=== PATIENT | female | born 1940 | race Caucasian/White ===

== ENCOUNTER 2020-01-30 20:40 | Observation (INO) ==
[2020-01-30] MEDS ORDERED: DEXTROSE 50% 25 GM/50 ML VIAL IV PRN (22:52)
[2020-01-30] MEDS ORDERED: guaiFENesin/DM ER 600-30 MG TABLET PO PRN (22:52)
[2020-01-30] MEDS ORDERED: ALBUTEROL 2.5 MG/3 ML NEB RESP TX PRN (22:52)
[2020-01-30] MEDS ORDERED: ZALEPLON 5 MG CAPSULE PO PRN (22:52)
[2020-01-30] MEDS ORDERED: ACETAMINOPHEN 325 MG TABLET PO PRN (22:52)
[2020-01-30] MEDS ORDERED: diphenhydrAMINE CAP 25 MG CAPSULE PO PRN (22:52)
[2020-01-30] MEDS ORDERED: GLUCAGON 1 MG VIAL IM PRN (22:52)
[2020-01-30] MEDS ORDERED: NICOTINE 21 MG/24 HR PATCH TRANSDERM PRN (22:52)
[2020-01-30] MEDS ORDERED: ONDANSETRON 4 MG/2 ML VIAL IV PRN (22:52)
[2020-01-30] MEDS ORDERED: hydrALAZINE 20 MG/1 ML VIAL IV PRN (22:52)
[2020-01-30] MEDS ORDERED: DOCUSATE SODIUM 100 MG CAPSULE PO PRN (22:52)
[2020-01-30] MEDS ORDERED: NITROGLYCERIN SL 0.4 MG TABLET SL PRN (22:56)
[2020-01-30 23:10] LABS: Basophils % 0.6 % (0.0-0.8); Eosinophils # 0.1 10*3/uL (0.0-0.87); Eosinophils % 1.2 % (0.00-10.9); Immature Granulocytes % 0.3 %; Immature Granulocytes Absolute 0.02 #; Lymphocytes # 2.2 10*3/uL (1.4-4.0); Mean Corpuscular HGB Conc 32.5 GM/DL (32-36); Mean Corpuscular Volume 90.1 FL (87-102); Monocytes % 7.9 % (1.7-12.7); Platelet Count 236 T/CUMM (130-400); Red Blood Count 4.44 MC/CUMM (3.8-5.5); Red Cell Distribution Width 13.1 % (9.3-17.3); White Blood Count 6.4 T/CUMM (4-12)
[2020-01-30 23:39] LABS: Calcium 8.8 MG/DL (8.5-10.1); Osmolality,Calculated 282.5 MOS/KG (273-304)
[2020-01-30] MEDS: amLODIPine 2.5 MG TABLET PO SCH (23:40)
[2020-01-31 06:32] LABS: Calcium 8.8 MG/DL (8.5-10.1); Osmolality,Calculated 279.5 MOS/KG (273-304)
[2020-01-31] MEDS ORDERED: PANTOPRAZOLE 40 MG TABLET PO SCH (09:00)
[2020-01-31] MEDS ORDERED: traZODone 50 MG TABLET PO SCH (09:00)
[2020-01-31] MEDS ORDERED: MEMANTINE 5 MG TABLET PO SCH (09:00)
[2020-01-31] MEDS ORDERED: DONEPEZIL 10 MG TABLET PO SCH (09:00)
[2020-01-31] MEDS ORDERED: ASPIRIN EC 325 MG TABLET PO SCH (09:00)
[2020-01-31] MEDS: amLODIPine 2.5 MG TABLET PO SCH (10:59)
[2020-01-31 11:49] VITALS: BP 143/84
== END 2020-01-31 15:45 | disposition home or self-care (01) ==
LOC: N.3E
PROVIDERS: ADMIT Internal Medicine; ATTEND Family Medicine